=== PATIENT | female | born 1955 | race Asian ===

== ENCOUNTER 2019-07-22 09:30 | Emergency (ER) | payer OTHER ==
--- NOTE | 2019-07-22 10:59 | ED Physician Documentation ---
PD HPI DYSPNEA - Stated complaint Stated Complaint: SOA - Chief complaint Chief Complaint: Resp - History obtained from History obtained from: Patient, Family - History of Present Illness Timing - onset: How many days ago (3) Timing - duration: Days (3) Timing - details: Gradual onset Inciting event(s): Out of meds (Out of her Advair for the past 3 months.) Improved by: Inhaler/neb (Minimal relief.) Associated symptoms: Cough (Minimal), Wheezing. No: Fever, Chest pain / dis comfort, Palpitations, Bilateral edema Similar symptoms before: Diagnosis Recently seen: Not recently seen - Additional information Additional information: This is a 63-year-old with a history of asthma presents with her daughter complaints that her asthma is flared up and she cannot breathe over the past 3 nights. She is using her pro-air inhaler but it is only helping for minimal period of time. She is never been on prednisone before but she was on Advair until she ran out about 3 months ago. She is coughing but she says is more because of the not being able to breathe and she is not bringing up any phlegm. She felt hot last night but did not have a fever. She denies chest pain or dizziness. Review of Systems Constitutional: denies: Fever Nose: denies: Congestion Throat: denies: Sore throat Cardiac: denies: Chest pain / pressure, Palpitations Respiratory: reports: Dyspnea, Cough PD PAST MEDICAL HISTORY - Present Medications Home Medications: Ambulatory Orders Medication Instructions Recorded Confirmed Albuterol Sulfate [Proair Hfa 1 - 2 puffs INH Q4H PRN 07/22/19 07/22/19 Inhaler] Aspirin 81 mg PO 07/22/19 07/22/19 Atorvastatin [Lipitor] 0 mg 07/22/19 Fluticasone [Flonase] 1 sprays RAJAT DAILY 07/22/19 07/22/19 Fluticasone/Salmeterol [Advair 1 each IH 07/22/19 250-50 Diskus] Fluticasone/Salmeterol [Advair 1 each IH BID #1 blst.w.dev 07/22/19 250-50 Diskus] Loratadine [Claritin] 10 mg PO 07/22/19 hydroCHLOROthiazide 25 mg PO 07/22/19 [Hydrochlorothiazide] - Allergies Allergies/Adverse Reactions: Allergies Allergy/AdvReac Type Severity Reaction Status Date / Time No Known Drug Allergies Allergy Verified 07/22/19 11:00 PD ED PE NORMAL - Vitals Vital signs reviewed: Yes - General General: Alert and oriented X 3, No acute distress, Well developed/nourished - HEENT HEENT: Atraumatic, PERRL, Moist mucous membranes - Neck Neck: No adenopathy - Respiratory Respiratory: Other (Patient is tachypneic with prolonged expirations and audible wheezing. Lung sounds are diminished throughout the lung fontenot.) Results - Vitals Vitals: Vital Signs - 24 hr 07/22/19 07/22/19 09:34 11:34 Temperature 36.7 C Heart Rate 92 90 Respiratory 20 18 Rate Blood Pressure 141/100 H O2 Saturation 96 Oxygen O2 Source Room air PD MEDICAL DECISION MAKING - ED course Complexity details: re-evaluated patient, d/w patient, d/w family ED course: Patient received an albuterol nebulizer and stated that her breathing was back to normal. She still had some faint wheezing at the bases but she does not feel short of breath. Me to give her a prescription for her Advair and she is encouraged to follow-up with a primary care provider to renew that prescription. Departure - Departure Disposition: 01 Home, Self Care Clinical Impression: Asthma Qualifiers: Asthma severity: moderate Asthma persistence: unspecified Asthma complication type: with acute exacerbation Qualified Code(s): J45.901 - Unspecified asthma with (acute) exacerbation Condition: Good Instructions: ED Inhaler Use, Asthma Dc Follow-Up: Cheng Villavicencio MD [Primary Care Provider] - Prescriptions: Fluticasone/Salmeterol [Advair 250-50 Diskus] 1 each IH BID #1 blst.w.dev Comments: Start the Advair twice a day. Use the pro-air inhaler in between dosing on the Advair up to every 4 hours if needed for shortness of breath. Follow-up with your primary care provider for refills on the Advair prescription. Return if you have increasing shortness of breath, chest pain, productive cough or fever.
[2019-07-22] MEDS ORDERED: ALBUTEROL NEB 2.5 MG/3 ML INH STA (11:02)
[2019-07-22 12:24] VITALS: BP 124/86
== END 2019-07-22 12:25 | disposition home or self-care (01) ==
LOC: ED 09:30
DX: J45.901 Unspecified asthma with (acute) exacerbation (principal)
CPT/HCPCS: 94664; 99283

== ENCOUNTER 2023-08-25 08:00 | Outpatient (CLI) | payer MEDICARE | END 2023-08-25 08:01 | disposition home or self-care (01) | LOC: LAB.N 08:00 | PROVIDERS: ATTEND Physician Assistant Medical | DX: J22 Unspecified acute lower respiratory infection (principal) ==

== ENCOUNTER 2023-08-31 15:30 | Outpatient (CLI) | payer MEDICARE | END 2023-08-31 15:45 | disposition home or self-care (01) | LOC: LAB.N 15:30 | PROVIDERS: ATTEND Physician Assistant Medical | DX: N30.01 Acute cystitis with hematuria (principal) | CPT/HCPCS: 87077; 87086; 87181 ==